=== PATIENT | female | born 1955 | race African-American/Black ===

== ENCOUNTER 2025-02-04 12:20 | Day surgery (SDC) | payer OTHER, MEDICARE ==
[2025-02-04] MEDS ORDERED: diphenhydrAMINE HCL 50 MG CAPSULE PO PRN (12:51)
[2025-02-04] MEDS ORDERED: HYDROCORTISONE SOD SUCCINATE 100 MG/2 ML VIAL IVPB PRN (12:51)
[2025-02-04 12:52] VITALS: BP 130/64; PULSE 67; TEMP 97.8
[2025-02-04] MEDS: IRON SUCROSE INJECTION 200 MG in SODIUM CHLORIDE 100 ML IVPB ONE (13:01)
[2025-02-04 14:52] VITALS: RESP 18
== END 2025-02-04 15:11 | disposition home or self-care (01) ==
LOC: FINFUSION 12:20 → FM/S 12:21 → FINFUSION 15:11
PROVIDERS: ATTEND Internal Medicine Hematology & Oncology
PROC: 3E033GC Introduction of Other Therapeutic Substance into Peripheral Vein, Percutaneous Approach (ICD-10-PCS; principal; 2025-02-04)
DX: D50.9 Iron deficiency anemia, unspecified (principal)
CPT/HCPCS: 96365; J1756